=== PATIENT | female | born 1945 | race Caucasian/White ===

== ENCOUNTER 2021-05-26 08:34 | Emergency (ER) | payer MEDICARE, OTHER ==
[2021-05-26] MEDS ORDERED: Propofol 200 MG/20 ML SDV IVPUSH ONE (08:53)
[2021-05-26] MEDS ORDERED: Sodium Chloride 0.9% 1,000 ML IV SCH ×2 (09:00→10:30)
--- NOTE | 2021-05-26 09:53 | EDM.PDOC ---
ED HPI GENERAL MEDICAL PROBLEM - General Chief Complaint: Cardiovascular Problem Stated Complaint: HEART RACING Time Seen by Provider: 05/26/21 08:55 Source of Information: Reports: Patient, Family History Limitations: Reports: No Limitations - History of Present Illness INITIAL COMMENTS - FREE TEXT/NARRATIVE: 75-year-old female presents to the emergency room with palpitations, fast heartbeat, mild shortness of breath and chest discomfort in the upper chest. She just feels anxious and uncomfortable. She also felt like her "blood pressure was low". No fevers or chills, no cough, no abdominal pain, no peripheral edema. She just had a cardiology recheck last Monday as she has a defibrillator in place. She is fully anticoagulated. On arrival she was put on a telemetry monitor and is in atrial fibrillation with RVR, rate 140-160. She has not eaten anything this morning. Onset: Sudden (Palpitations started suddenly about 45 minutes prior to coming in) Location: Reports: Chest Associated Symptoms: Reports: Malaise, Shortness of Breath (Minimal shortness of breath), Weakness. Denies: Chest Pain, Cough, Nausea/Vomiting - Related Data Allergies Allergy/AdvReac Type Severity Reaction Status Date / Time Ameaxaq-Oud-Xhb Reductase Allergy Cannot Verified 05/26/21 08:55 Inhibitor Remember Home Meds: Home Meds Metoprolol Succinate 100 mg PO DAILY 05/26/21 [History] Nitroglycerin 0.4 tab PO ASDIRECTED 05/26/21 [History] Sacubitril/Valsartan [Entresto 24 mg-26 mg Tablet] 1 tab PO BID 05/26/21 [History] Spironolactone [Aldactone] 25 mg PO DAILY 05/26/21 [History] Past Medical History HEENT History: Reports: Impaired Vision Cardiovascular History: Reports: Afib, High Cholesterol, Hypertension, [place]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: - Past Surgical History Cardiovascular Surgical History: Reports: AICD, Coronary Artery Stent Female Surgical History: Reports: Hysterectomy Social & Family History - Tobacco Use Tobacco Use Status *Q: Never Tobacco User - Caffeine Use Caffeine Use: Reports: Coffee - Recreational Drug Use Recreational Drug Use: No ED ROS GENERAL - Review of Systems Review Of Systems: See Below Constitutional: Denies: Fever, Chills Cardiovascular: Reports: Lightheadedness, Palpitations GI/Abdominal: Denies: Abdominal Pain, Nausea, Vomiting : Reports: No Symptoms Musculoskeletal: Reports: No Symptoms Skin: Reports: No Symptoms Neurological: Reports: Dizziness Psychiatric: Reports: No Symptoms ED EXAM, GENERAL - Physical Exam Exam: See Below Exam Limited By: No Limitations General Appearance: Alert, Anxious Eye Exam: Bilateral Eye: Normal Inspection Head: Atraumatic Neck: Supple, Non-Tender Respiratory/Chest: Lungs Clear Cardiovascular: No Murmur, Tachycardia, Irregularly Irregular GI/Abdominal: Soft, Non-Tender Extremities: Normal Inspection. No: Pedal Edema Neurological: Alert, Oriented, No Motor/Sensory Deficits Psychiatric: Normal Affect, Normal Mood Skin Exam: Warm, Dry Course - Vital Signs Last Recorded V/S: Last Vital Signs Temp 97.2 F 05/26/21 08:54 Pulse 68 05/26/21 12:28 Resp 16 05/26/21 12:28 BP 93/53 L 05/26/21 12:28 Pulse Ox 99 05/26/21 12:28 - Orders/Labs/Meds Orders: Active Orders 24 hr Category Date Time Status EKG 12 Lead [EK] Routine Ther 05/26/21 09:31 Ordered Meds: Medications Discontinued Medications Generic Name Dose Route Start Last Admin Trade Name Freq PRN Reason Stop Dose Admin Sodium Chloride 1,000 mls @ 1,000 mls/hr 05/26/21 09:00 05/26/21 09:00 Normal Saline IV 1,000 mls/hr ASDIRECTED TYRONE Administration Sodium Chloride 1,000 mls @ 1,000 mls/hr 05/26/21 10:30 05/26/21 10:27 Normal Saline IV 1,000 mls/hr ASDIRECTED TYRONE Administration Propofol 200 mg 05/26/21 08:53 05/26/21 09:10 Propofol 200 Mg/20 Ml Sdv IVPUSH 05/26/21 08:54 80 mg ONETIME ONE Administration - Re-Assessments/Exams Free Text/Narrative Re-Assessment/Exam: 05/26/21 10:42 Patient was placed on a telemetry monitor and was in atrial fibrillation with RVR. Average rate was between 140 and 160. Consent was obtained for elective cardioversion as the patient's blood pressure was persistently low with a systolic of 70-80. Braxton Londono of the hospitalist service assisted with cardioversion. After 80 mg of IV propofol, 100 J of biphasic charge was given to the patient without success, 200 J was then done which was successful. Patient recovered nicely but continued to be hypotensive. She also had a brief episode of a stridorous type shortness of breath which only lasted 30 seconds to a minute and resolved when she sat up. I did discuss her situation with her animal husbandry technician who she just saw 4 days ago, she recommended holding the spironolactone for the next 5 days, the Zenestro the next 2 days, but continue metoprolol. She also recommended 2 full liters of fluid IV as she has not had congestive failure in the past despite her low ejection fraction. 05/26/21 11:23 After the patient received a full liter of fluid, she was ambulated in the hallway and again became hypotensive and dizzy but remained in a sinus rhythm. A second dose of IV fluids was given to make a total of 2 L. Monitoring was continued, she remained in sinus rhythm. 05/26/21 14:03 After the second liter of IV fluid the patient felt more stable. She ambulated without difficulty was discharged, she will hold her medications as mentioned above and return if problems. Departure - Departure Time of Disposition: 13:35 Disposition: Home, Self-Care 01 Clinical Impression: Atrial fibrillation with RVR Instructions: Atrial Fibrillation, [id number] Referrals: PCP,None [Primary Care Provider] - Forms: ED Department Discharge Care Plan Goals: Continue your metoprolol daily, hold the Entresto today and tomorrow, and hold your spironolactone for the next 5 days. Activity as tolerated and concentrate on staying hydrated. Return anytime if you feel you are worsening or develop other concerns. Sepsis Event Note (ED) - Evaluation Sepsis Screening Result: No Definite Risk - Focused Exam Vital Signs: Vital Signs Temp Pulse Resp BP Pulse Ox 05/26/21 12:28 68 16 93/53 L 99 05/26/21 12:08 69 15 88/51 L 97 05/26/21 11:48 69 15 87/50 L 98 05/26/21 11:31 231 H 16 95/52 L 98 05/26/21 11:24 68 16 92/53 L 100 05/26/21 11:00 69 16 90/53 L 99 05/26/21 10:30 65 12 87/54 L 100 05/26/21 10:00 67 15 92/43 L 100 05/26/21 09:12 117 H 21 H 77/50 L 100 05/26/21 09:09 124 H 21 H 70/38 L 100 05/26/21 08:54 97.2 F 150 H 17 70/48 L 100 05/26/21 08:49 97.2 F 150 H 17 70/48 L 100 - My Orders Last 24 Hours: My Active Orders 05/26/21 09:31 EKG 12 Lead [EK] Routine - Assessment/Plan Last 24 Hours: My Active Orders 05/26/21 09:31 EKG 12 Lead [EK] Routine
== END 2021-05-26 13:36 | disposition home or self-care (01) ==
LOC: JP.ED 08:34
DX: I48.91 Unspecified atrial fibrillation (principal); I10 Essential (primary) hypertension; I25.2 Old myocardial infarction; Z88.8 Allergy status to other drugs, medicaments and biological substances
CPT/HCPCS: 92960; 93005; 99284; J2704; J7030; 93010

== ENCOUNTER 2021-06-30 11:07 | Emergency (ER) | payer MEDICARE, OTHER ==
[2021-06-30] MEDS ORDERED: Sodium Chloride 0.9% 1,000 ML IV SCH (11:30)
--- NOTE | 2021-06-30 11:44 | EDM.PDOC ---
ED HPI GENERAL MEDICAL PROBLEM - General Chief Complaint: Cardiovascular Problem Stated Complaint: BENJAMIN SHORTNESS OF BREATH Time Seen by Provider: 06/30/21 11:30 Source of Information: Reports: Patient History Limitations: Reports: No Limitations - History of Present Illness INITIAL COMMENTS - FREE TEXT/NARRATIVE: 75-year-old female with chronic paroxysmal atrial fibrillation and chronic hypertension presents with an onset of palpitations and tachycardia, weakness and lightheaded since this morning. Her blood pressure was 95/60 last evening but she felt fine and did not feel she was in an arrhythmia. It started sometime overnight. She has no chest pain, no significant shortness of breath. She responded well to cardioversion 3 weeks ago when she came in with a very similar presentation. Onset: Unknown/Unsure (Symptoms started sometime overnight) Worsens with: Reports: Other (Activity causes lightheaded sensations) - Related Data Allergies Allergy/AdvReac Type Severity Reaction Status Date / Time Kgyblxc-Yut-Oot Reductase Allergy Cannot Verified 06/30/21 11:26 Inhibitor Remember Home Meds: Home Meds Metoprolol Succinate 100 mg PO DAILY 05/26/21 [History] Nitroglycerin 0.4 tab PO ASDIRECTED 05/26/21 [History] Sacubitril/Valsartan [Entresto 24 mg-26 mg Tablet] 1 tab PO BID 05/26/21 [History] Spironolactone [Aldactone] 25 mg PO DAILY 05/26/21 [History] Rosuvastatin [Crestor] 20 mg PO DAILY 06/30/21 [History] Warfarin [Coumadin] 5 mg PO DAILY 06/30/21 [History] Past Medical History HEENT History: Reports: Impaired Vision Cardiovascular History: Reports: Afib, High Cholesterol, Hypertension, [place]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 Denies: Chest Pain GI/Abdominal: Denies: Diarrhea, Nausea, Vomiting : Reports: No Symptoms Musculoskeletal: Reports: No Symptoms Skin: Reports: No Symptoms Neurological: Reports: No Symptoms, Dizziness, Weakness Psychiatric: Reports: No Symptoms ED EXAM, GENERAL - Physical Exam Exam: See Below Exam Limited By: No Limitations General Appearance: Alert, No Apparent Distress Eye Exam: Bilateral Eye: Normal Inspection Respiratory/Chest: No Respiratory Distress, Lungs Clear Cardiovascular: Tachycardia, Irregularly Irregular GI/Abdominal: Soft, Non-Tender Extremities: Normal Inspection. No: Pedal Edema Neurological: Alert, Oriented Psychiatric: Normal Affect, Normal Mood #1 Interpretation EKG Date: 06/30/21 Time: 11:00 Rhythm: A-Fib Rate (Beats/Min): 130 QRS: Normal EKG Interpretation Comments: Atrial fibrillation with RVR Course - Vital Signs Last Recorded V/S: Last Vital Signs Temp 97.0 F 06/30/21 12:11 Pulse 71 06/30/21 13:06 Resp 17 06/30/21 13:06 BP 80/44 L 06/30/21 13:06 Pulse Ox 99 06/30/21 13:06 - Orders/Labs/Meds Orders: Active Orders 24 hr Category Date Time Status EKG Documentation Completion [RC] ASDIRECTED Care 06/30/21 13:46 Active EKG 12 Lead [EK] Routine Ther 06/30/21 13:46 Ordered Labs: Laboratory Tests 06/30/21 06/30/21 Range/Units 11:34 11:34 WBC 8.7 (4.5-11.0) K/uL RBC 4.95 (3.30-5.50) M/uL Hgb 14.7 (12.0-15.0) g/dL Hct 43.4 (36.0-48.0) % MCV 88 (80-98) fL MCH 30 (27-31) pg MCHC 34 (32-36) % Plt Count 215 (150-400) K/uL Neut % (Auto) 59.3 (36-66) % Lymph % (Auto) 30.2 (24-44) % [place] % (Auto) 8.2 H (2-6) % Eos % (Auto) 1.7 L (2-4) % Baso % (Auto) 0.6 (0-1) % Sodium 142 (140-148) mmol/L Potassium 3.8 (3.6-5.2) mmol/L Chloride 105 (100-108) mmol/L Carbon Dioxide 26 (21-32) mmol/L Anion Gap 10.9 (5.0-14.0) mmol/L BUN 17 (7-18) mg/dL Creatinine 1.1 H (0.6-1.0) mg/dL Est Cr Clr Drug Dosing 37.68 mL/min Estimated GFR (MDRD) 49 L (>60) Glucose 118 H (74-106) mg/dL Calcium 9.2 (8.5-10.1) mg/dL Troponin I < 0.017 (0.000-0.056) ng/mL Meds: Medications Discontinued Medications Generic Name Dose Route Start Last Admin Trade Name Freq PRN Reason Stop Dose Admin Sodium Chloride 1,000 mls @ 1,000 mls/hr 06/30/21 11:30 06/30/21 11:55 Normal Saline IV 1,000 mls/hr ASDIRECTED TYRONE Administration Propofol 200 mg 06/30/21 11:47 06/30/21 12:10 Propofol 200 Mg/20 Ml Sdv IVPUSH 06/30/21 11:48 200 mg ONETIME ONE Administration - Re-Assessments/Exams Free Text/Narrative Re-Assessment/Exam: 06/30/21 14:26 Patient was a good candidate for cardioversion, so after risks and benefits were discussed and consent obtained, the patient was cardioverted after 30 mg of IV propofol with Dr. Flannery of the hospitalist service assisting. She converted back to normal sinus rhythm. She was observed for an additional hour, received the rest of her IV fluids and although she still remained somewhat hypotensive she was asymptomatic. She was discharged in stable condition. Departure - Departure Time of Disposition: 13:20 Disposition: Home, Self-Care 01 Clinical Impression: Atrial fibrillation with RVR Instructions: Atrial Fibrillation, [id number] Referrals: PCP,None [Primary Care Provider] - Forms: ED Department Discharge Care Plan Goals: Stay hydrated, increase activity as tolerated and I would recommend you continue your regular medications unless told to change by your primary provider. Return anytime if symptoms recur or you have other concerns. Sepsis Event Note (ED) - Focused Exam Vital Signs: Vital Signs Temp Pulse Resp BP Pulse Ox 06/30/21 13:06 71 17 80/44 L 99 06/30/21 12:45 74 16 83/49 L 99 06/30/21 12:11 97.0 F 130 H 13 81/38 L 99 06/30/21 11:17 97.0 F 130 H 13 81/38 L 99 - My Orders Last 24 Hours: My Active Orders 06/30/21 13:46 EKG Documentation Completion [RC] ASDIRECTED EKG 12 Lead [EK] Routine - Assessment/Plan Last 24 Hours: My Active Orders 06/30/21 13:46 EKG Documentation Completion [RC] ASDIRECTED EKG 12 Lead [EK] Routine
[2021-06-30] MEDS ORDERED: Propofol 200 MG/20 ML SDV IVPUSH ONE (11:47)
--- NOTE | 2021-06-30 12:32 | PCM.PRNOTE ---
- Free Text/Narrative Note: Date of service: 06/30/2021 Proposed procedure: Synchronized cardioversion Preprocedure diagnosis: Paroxysmal atrial fibrillation with rapid ventricular response Post procedure diagnosis: Paroxysmal atrial fibrillation with rapid ventricular response Indication for procedure: Guerita was evaluated today for management atrial fibrillation with symptoms and rapid ventricular response. Synchronized cardioversion was recommended as a primary treatment. Description of the procedure: Guerita is currently located [facility]. We have reviewed the potential risks of electrical cardioversion including but not limited to: Superficial skin coy, ineffective treatment, other arrhythmias, reaction to anesthesia medications or potentially asystole. The benefits of the procedure have also been reviewed. At this time the patient wishes to proceed with electrical cardioversion. All necessary pre-procedure information and paperwork has been provided and completed, respectively. The patient was connected to cardioversion pads and monitoring equipment per protocol. Prior to the procedure, a timeout was held with nursing and anesthesia present to confirm the right patient and right procedure. Once appropriate anesthesia was applied the machine was charged to 200 Joules and a synchronized electrical shock was applied. The patient was successfully converted to normal sinus rhythm based on telemetry monitoring. They will remain in their current location until anesthesia has dissipated and the patient is more awake and alert. They will then be discharged to home once medically stable. Anticoagulation should be continued for at least one month post cardioversion. There were no immediate complications noted from the procedure. Post procedure EKG is pending at the time of dictation. Kevan Flannery M.D.
== END 2021-06-30 13:20 | disposition home or self-care (01) ==
LOC: JP.ED 11:07
DX: I48.91 Unspecified atrial fibrillation (principal); E78.00 Pure hypercholesterolemia, unspecified; I10 Essential (primary) hypertension; I25.2 Old myocardial infarction; Z79.01 Long term (current) use of anticoagulants; Z79.899 Other long term (current) drug therapy; Z88.8 Allergy status to other drugs, medicaments and biological substances
CPT/HCPCS: 36415; 80048; 84484; 85025; 92960; 99285; J2704; J7030